=== PATIENT | male | born 1965 | race Caucasian/White ===

== ENCOUNTER 2020-08-15 15:17 | Outpatient (CLI) | payer OTHER ==
[2020-08-15 16:16] VITALS: BP 150/98
--- NOTE | 2020-08-15 16:16 | SLEEP CARE CONSULTATION ---
Information from patient questionnaire entered by Trinity Flynn. I have reviewed and concur with the information entered by Trinity Flynn. This document represents the service I personally performed and the decisions made by me, Leila Galloway ARNP. History of Present Illness Service Date and Time: 08/15/2020 1517 Reason for Visit: New patient Chief Complaint: reports: Snoring, Observed pauses in breathing, Frequent awakenings at night. denies: Insomnia, Unrefreshed sleep, Excessive daytime sleepiness, Fatigue Date of Onset: 5 plus years Usual bedtime: 11pm Time it takes to fall asleep: 30 minutes Snores at night: Yes Observed to quit breathing while asleep: Yes Number of times waking at night: 1-2 Reasons for waking at night: reports: Snoring (occasional). denies: Choking, Gasping for air, Bathroom Toss, Turn, or Twitch while sleeping: No Recalls having dreams: Yes Usually gets out of bed at: 8-9 am Feels refreshed in the morning: No Morning headache: No (has had in past over 10 years, intermittent) Sleepy or fatigued during the day: No Ever fallen asleep while driving: No Takes day naps: No Dreams during day naps: No Prior sleep studies: Yes Year and Where: 08/2019 - [facility] in [place], [place] Additional HPI information: I had the pleasure of seeing DEJAH CALLEJAS today regarding the possibility of him having a sleep disorder. His current complaints are snoring, observed pauses in breathing and frequent night awakenings. He was diagnosed with sleep apnea in [place], [place] but did not start using the CPAP therapy as prescribed. He states he did a HST. 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 He would like to get set up with a CPAP machine, his insurance company encouraged him to follow up with a sleep medicine doctor to get therapy started. He came up to [place] to be with his mother in January and is still here to help her since onset of Covid pandemic. - Parasomnia Symptoms Ever been unable to move upon waking from sleep: No Walks in sleep: No Talks in sleep: No Ever acted out dreams in sleep: No Ever felt weak in the knees when startled or emotional: No Bothered by creepy, crawly, restless sensations in legs: No Problems with memory or concentration: No Subjective Initial Hegins Sleepiness Scale score: 4 (in 2020) Past Medical History Past Medical History: reports: Hypertension. 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 Patient is and lives in [place]. Have you smoked in the past 12 months: No Alcohol use: Yes Alcohol amount and frequency: 1-2 drinks, social; couple times a week Caffeine use: Yes Caffeine amount and frequency: 2-3 12 oz cups/day Family History Family history of sleep disordered breathing: Yes (brother) Family Hx Sleep Apnea: Sibling: Snoring, Sleep apnea - Treated Allergies and Home Medications Drug allergies reviewed: Yes (NKDA) Home medication list reviewed: Yes Allergy and home medication list: atorvastatin 40 mg olmesartan hydrochlorothizide 40-12.5 mg Vitamin D Review of Systems Cardiovascular: reports: high blood pressure, leg or foot swelling. denies: palpitations, chest pain, irregular heart rate or pulse Respiratory: denies: shortness of breath Gastrointestinal: denies: heartburn, difficulty swallowing Neurological: denies: headaches, seizure, head trauma, speech dysfunction, gait or balance problems, fainting or unconsciousness Psychiatric: denies: Attention Deficit Hyperactivity, anxiety, depression, claustrophobia Ear/Nose/Throat: reports: nasal congestion (seasonal allergies), dry mouth/throat (sometimes, mouth breathing at night), tonsillectomy, wisdom teeth removed. denies: sinus problems, nose bleeds, injury to nose Endocrine: denies: thyroid disease Musculoskeletal: denies: joint pain, back pain Immunologic: reports: allergies to food or environment (seasonal) Physical Exam Blood Pressure: 150/98 (usually elevated in office) Cuff size: long Heart Rate: 69 O2 Saturation: 99 Height: 5 ft 9 in Weight: 221 lb Body Mass Index: 32.6 BMI Classification: Obese HEENT: No craniofacial malformation Nostrils: patent to airflow Turbinates: normal Septum: midline Mouth and throat: narrow oropharynx Soft palate: normal Hard palate: normal Uvula: normal Uvula visualization: 25% Mallampati Class III Tongue: enlarged in size with teeth carrasco on lateral edges Tonsils: absent bilaterally Chin and jaw: normal size and position Neck: normal w/o lymphadenopathy or thyromegaly Heart: regular rate and rhythm Impression and Plan 1. Suspected Obstructive Sleep Apnea-Hypopnea Syndrome, as previously diagnosed in [place] and as suggested by a history of loud and irregular snoring, observed cessation of breath while asleep, frequent awakening during the night, unrefreshed sleep, and excessive daytime sleepiness. Narrow oropharynx and obesity are common predisposing factors for obstructive sleep apnea-hypopnea syndrome. Patient has a sleep study done at [facility] in [place], [place] showed that he has moderate obstructive sleep apnea at 22/hour. I advised him that since he did not start CPAP therapy, has not been on therapy for the last year since the study that he may need to repeat the study to verify results so we may get him on CPAP therapy. He voiced understanding but states he does not want to go through with another study. We will contact his insurance company to see if another study needs to be done and then he will be notified by the office staff. The pathophysiology of obstructive sleep apnea-hypopnea syndrome was discussed with the patient and health risks of cardiovascular and cerebrovascular disease if not treated. AASM brochure for obstructive sleep apnea-hypopnea syndrome given and reviewed. * Schedule polysomnography if patient agrees with this after contacting his insurance carrier about status of getting another study. * Avoid long distance driving or driving when feeling sleepy. * Avoid alcohol, sedative and muscle relaxant around bedtime. * Attempt to lose weight. * Review instructions provided by trained office staff on how to prepare for the sleep study. * Return for follow-up after sleep study completed. Counseling Topics: Weight loss health impact Time Spent with Patient (minutes): 40
== END 2020-08-15 15:18 | disposition home or self-care (01) ==
LOC: SC 15:17
PROVIDERS: ATTEND Nurse Practitioner Family
DX: R06.83 Snoring (principal); R06.81 Apnea, not elsewhere classified; G47.8 Other sleep disorders; E66.9 Obesity, unspecified; Z68.32 Body mass index [BMI] 32.0-32.9, adult
CPT/HCPCS: 99203; 99212